=== PATIENT | female | born 1975 | race Caucasian/White ===

== ENCOUNTER → 2019-01-19 | Outpatient (REF) | payer BC ==
[2019-01-25 14:52] LABS: HPV HYBRID CAPTURE II Negative (Negative)
== END ==
LOC: M LAB LCGH 13:27
DX: Z12.4 Encounter for screening for malignant neoplasm of cervix (principal); R87.610 Atypical squamous cells of undetermined significance on cytologic smear of cervix (ASC-US)
CPT/HCPCS: 87624; G0123